=== PATIENT | female | born 1980 | race Caucasian/White ===

== ENCOUNTER 2022-06-22 14:15 | Outpatient (REF) | payer OTHER, SELFPAY ==
--- NOTE | ~2022-06-22 | XR_ITS ---
EXAMINATION: XR CHEST CLINICAL INFORMATION: Cough COMPARISON: None TECHNIQUE: 2 views of the chest were obtained. FINDINGS: Lungs are clear. No focal consolidation or mass. Normal pulmonary vascularity. No pleural effusion or pneumothorax. Normal heart size. Mild multilevel degenerative changes of the thoracic spine. XR/XR chest 2V IMPRESSION: No acute pulmonary disease.
[2022-06-22 16:42] LABS: Influenza A PCR POSITIVE (Negative); Influenza B PCR NEGATIVE (Negative); Resp Syncy Virus RNA Qual PCR NEGATIVE (Negative); SARS COV2 PCR INHOUSE NEGATIVE (Negative)
== END 2022-06-22 14:16 | disposition home or self-care (01) ==
LOC: HO.HMGCX 14:15
PROVIDERS: Visit Provider Physician Assistant Medical
DX: Z20.822 Contact with and (suspected) exposure to COVID-19 (principal); R05.9 Cough, unspecified
CPT/HCPCS: 0241U; 71046